=== PATIENT | male | born 1975 | race Caucasian/White ===

== ENCOUNTER 2025-06-01 17:32 | Emergency (ER) | payer BC ==
[~2025-06-01] VITALS: Ht 175.3 cm; Wt 68.0 kg
[2025-06-01 18:22] VITALS: TEMP 98.7
[2025-06-01 18:45] LABS: BASOPHILS % 0.4 % (0.0-1.0); EOSINOPHILS % 2.1 % (0.0-6.0); LYMPHOCYTES % 23.3 % (18.0-39.1); MONOCYTES % 7.1 % (4.4-11.3); NEUTROPHILS % 66.6 % (38.7-80.0); RED CELL DISTRIBUTION WIDTH 16.8 % (11.7-14.4)
[2025-06-01] MEDS: Morphine 4mg INJECTION 4 MG/ML INJ IV STA (19:04)
[2025-06-01] MEDS: SODIUM CHLORIDE 0.9% 1000ML 1,000 ML IV STA (19:05)
[2025-06-01] MEDS: ONDANSETRON HCL INJ 2MG/ML 2ML 2 MG/ML VIAL IV STA ×2 (19:05→22:04)
[2025-06-01 19:06] LABS: EST GLOMERULAR FILTRATION RATE 97.0 ML/MIN (>=60)
[2025-06-01] MEDS ORDERED: IOPAMIDOL 370 MG/ML 100 ML INFUS..BTL INJ ONE (19:11)
[2025-06-01 19:46] VITALS: PULSE 85; RESP 16
[2025-06-01] MEDS: KETOROLAC TROMETHAMINE 30 MG/ML VIAL IV STA (20:47)
[2025-06-01 21:19] LABS: LEUKOCYTE ESTERASE ,URINE NEGATIVE (NEGATIVE); PROTEIN,URINE DIPSTICK NEGATIVE (NEGATIVE); URINE UROBILINOGEN 0.2 mg/dL (0.2 - 1)
[2025-06-01] MEDS: INSULIN REGULAR, HUMAN 100 UNIT/1 ML SQ STA (21:49)
[2025-06-01] MEDS: HYDROMORPHONE 1MG/1ML INJ IV STA (22:04)
[2025-06-01 22:07] VITALS: BP 155/79; PULSE 81; RESP 16; TEMP 98.6; O2SAT 97
== END 2025-06-01 22:15 | disposition home or self-care (01) ==
LOC: ER 18:00
DX: R10.13 Epigastric pain (principal); K86.1 Other chronic pancreatitis; E11.65 Type 2 diabetes mellitus with hyperglycemia; R11.2 Nausea with vomiting, unspecified; I10 Essential (primary) hypertension
CPT/HCPCS: 36415; 74177; 80053; 81001; 82550; 83690; 84484; 85025; 93005; 99284; J1171; J1885; J2270; J2405; J7030; Q9967

== ENCOUNTER 2025-06-20 13:31 | Emergency (ER) | payer BC ==
[~2025-06-20] VITALS: Ht 175.3 cm; Wt 68.0 kg
[2025-06-20 14:11] VITALS: TEMP 97.1
[2025-06-20] MEDS ORDERED: HUMALOG JU100 UNIT/1 (14:26)
[2025-06-20] MEDS ORDERED: VITAMIN D PO (14:26)
[2025-06-20] MEDS ORDERED: AMLODIPINE BESY10 MG PO (14:26)
[2025-06-20] MEDS ORDERED: INSULIN GL100 UNIT/2 SL (14:26)
[2025-06-20] MEDS ORDERED: PANTOPRAZOLE SO40 MG PO (14:26)
[2025-06-20] MEDS ORDERED: PREGABALIN75 MG PO (14:26)
[2025-06-20] MEDS ORDERED: ISOSORBIDE MONO30 MG PO (14:26)
[2025-06-20] MEDS ORDERED: CREON DR 36,001 EACH PO (14:26)
[2025-06-20] MEDS ORDERED: NITROGLYCERIN0.4 MG SL (14:26)
[2025-06-20] MEDS ORDERED: ASPIRIN81 MG PO (14:26)
[2025-06-20] MEDS ORDERED: METOPROLOL SUC100 MG PO (14:26)
[2025-06-20] MEDS: HYDROMORPHONE 1MG/1ML INJ IV STA ×2 (14:50→18:12)
[2025-06-20] MEDS: SODIUM CHLORIDE 0.9% 1000ML 1,000 ML IV STA (14:50)
[2025-06-20 15:14] LABS: BASOPHILS % 0.3 % (0.0-1.0); EOSINOPHILS % 1.9 % (0.0-6.0); LYMPHOCYTES % 22.1 % (18.0-39.1); MONOCYTES % 9.6 % (4.4-11.3); NEUTROPHILS % 65.7 % (38.7-80.0); RED CELL DISTRIBUTION WIDTH 17.5 % (11.7-14.4)
[2025-06-20 15:39] LABS: EST GLOMERULAR FILTRATION RATE 106.0 ML/MIN (>=60)
[2025-06-20] MEDS ORDERED: IOPAMIDOL 370 MG/ML 100 ML INFUS..BTL INJ ONE (15:45)
[2025-06-20] MEDS ORDERED: HYDROCODON-ACE1 EA11 PO (18:28)
[2025-06-20 18:46] VITALS: PULSE 66; RESP 18; O2SAT 100
== END 2025-06-20 18:46 | disposition home or self-care (01) ==
LOC: ER 14:14
DX: R10.13 Epigastric pain (principal); K86.1 Other chronic pancreatitis; I10 Essential (primary) hypertension; E11.65 Type 2 diabetes mellitus with hyperglycemia
CPT/HCPCS: 36415; 74177; 80053; 82550; 83690; 84484; 85025; 93005; 99284; J1171; J7030; Q9967